=== PATIENT | male | born 1965 | race Caucasian/White ===

== ENCOUNTER 2018-07-08 07:40 | Day surgery (SDC) | payer OTHER ==
[~2018-07-08 07:40] MED LIST: LIDOCAINE 2% (SDV) 5 ML INJ; ROCURONIUM 50 MG INJ
[2018-07-08 08:29] LABS: ADD MAN DIFF? NO
[2018-07-08] MEDS ORDERED: SOD CHLORIDE 0.9% 1,000 ML IV (08:30)
[2018-07-08] MEDS ORDERED: CEFAZOLIN 2 GM/50 ML (PMX) 50 ML IVPB (08:30)
[2018-07-08 08:33] LABS: BASOPHILS % 0.5 % (0.0-2.0); EOSINOPHILS # 0.1 10^3/ul (0.0-0.5); EOSINOPHILS % 1.8 % (0.0-7.0); HEMATOCRIT 41.9 % (42.0-52.0); HEMOGLOBIN 14.3 g/dl (14.0-18.0); LYMPHOCYTES # 1.6 10^3/ul (0.8-2.9); LYMPHOCYTES % 29.2 % (15.0-51.0); MEAN CORPUSCULAR HEMOGLOBIN 30.2 pg (29.0-33.0); MEAN CORPUSCULAR HGB CONC 34.1 g/dl (32.0-37.0); MEAN CORPUSCULAR VOLUME 88.4 fl (82.0-101.0); MEAN PLATELET VOLUME 10.3 fl (7.4-10.4); MONOCYTE # 0.3 10^3/ul (0.3-0.9); NEUTROPHIL # 3.5 10^3/ul (1.6-7.5); NEUTROPHILS % 62.3 % (39.0-77.0); PLATELET COUNT 220 10^3/UL (140-415); RED BLOOD COUNT 4.74 10^6/ul (4.70-6.10); RED CELL DISTRIBUTION WIDTH 13.1 % (11.5-14.5)
[2018-07-08 08:33] LABS: WHITE BLOOD COUNT 5.6 10^3/ul (4.8-10.8)
[2018-07-08 08:51] LABS: INR 0.91; PROTIME 12.3 Sec (11.9-14.9)
[2018-07-08 08:52] LABS: ALANINE AMINOTRANSFERASE 57 IU/L (13-69); ALBUMIN 4.4 g/dl (3.3-4.9); ALBUMIN/GLOBULIN RATIO 1.12; ALKALINE PHOSPHATASE 88 IU/L (42-121); ANION GAP 12 (8-16); ASPARTATE AMINO TRANSFERASE 36 IU/L (15-46); BILIRUBIN,INDIRECT 0.4 mg/dl (0-1.1); BILIRUBIN,TOTAL 0.4 mg/dl (0.2-1.3); BLOOD UREA NITROGEN 12 mg/dl (7-20); CALCIUM 9.5 mg/dl (8.4-10.2); CARBON DIOXIDE 27 mmol/L (21-31); CHLORIDE 108 mmol/L (97-110); CREATININE 0.86 mg/dl (0.61-1.24); GLUCOSE 102 mg/dl (70-220); PARTIAL THROMBOPLASTIN TIME 27.5 Sec (25.0-35.0); POTASSIUM 3.9 mmol/L (3.5-5.1); SODIUM 143 mmol/L (135-144); TOTAL PROTEIN 8.3 g/dl (6.1-8.1)
[2018-07-08] MEDS ORDERED: HYDROmorphONE 1 MG/5 ML IV SYRINGE IV ×2 (09:00)
[2018-07-08] MEDS ORDERED: MEPERIDINE 25 MG INJ IV (09:00)
[2018-07-08] MEDS ORDERED: OXYCODONE/ACETAMINOPHEN (5/325) TAB PO ×2 (09:00)
[2018-07-08] MEDS ORDERED: ONDANSETRON 4 MG INJ IV (09:00)
[2018-07-08] MEDS ORDERED: ALBUTEROL 0.083% (NEB) 2.5 MG/3 ML AMP HHN (09:00)
[2018-07-08] MEDS ORDERED: DIPHENHYDRAMINE 50 MG INJ IV (09:00)
[2018-07-08] MEDS ORDERED: LABETALOL HCL 20MG INJ IV (09:00)
[2018-07-08] MEDS ORDERED: morphine (1 MG/ML) 10ML SYRINGE IV ×2 (09:00)
[2018-07-08] MEDS ORDERED: FENTAnyl 50 MCG/ML VIAL IV ×2 (09:00)
[2018-07-08] MEDS ORDERED: ACETAMINOPHEN 1000MG/100ML IV 100 ML (11:21)
[2018-07-08] MEDS ORDERED: MIDAZOLAM 1 MG/ML 2 ML INJ (11:21)
[2018-07-08] MEDS ORDERED: FENTAnyl 50 MCG/ML VIAL ×2 (11:21→14:07)
[2018-07-08] MEDS ORDERED: PROPOFOL 40 ML (11:21)
[2018-07-08] MEDS ORDERED: DEXAMETHASONE 4 MG/ML 1 ML INJ (11:22)
[2018-07-08] MEDS ORDERED: ONDANSETRON 4 MG INJ (11:22)
[2018-07-08] MEDS ORDERED: FAMOTIDINE 20 MG INJ (11:23)
[2018-07-08] MEDS ORDERED: CEFAZOLIN 1 GM INJ (11:25)
[2018-07-08] MEDS ORDERED: KETOROLAC 30 MG INJ (11:58)
[2018-07-08] MEDS ORDERED: KETAMINE (100 MG/ML) 5 ML VIAL (11:59)
[2018-07-08] MEDS: BUPIVACAINE 0.5% (SDV) 30 ML INJ (12:13)
[2018-07-08] MEDS: LIDOCAINE 1% (MPF) 30 ML INJ (12:13)
[2018-07-08] MEDS: POLYMYXIN/BACITRACIN 1L IRRIG (12:13)
[2018-07-08] MEDS ORDERED: ROCURONIUM 50 MG INJ (12:17)
[2018-07-08] MEDS ORDERED: SUGAMMADEX SODIUM 200 MG/2 ML VIAL IV (12:18)
[2018-07-08] MEDS ORDERED: MAGNESIUM SULFATE 1 GM/D5W 100 ML (12:23)
[2018-07-08] MEDS ORDERED: GLYCOPYRROLATE 1 MG INJ (12:26)
[2018-07-08] MEDS ORDERED: PROPOFOL 20 ML (12:55)
[2018-07-08] MEDS ORDERED: HYDROCODONE/APAP (5/325) TAB PO ×2 (14:30)
== END 2018-07-08 17:22 | disposition home or self-care (01) ==
LOC: SDS 07:40
DX: K40.30 Unilateral inguinal hernia, with obstruction, without gangrene, not specified as recurrent (principal)
CPT/HCPCS: 49505; 71045; 80053; 85025; 85610; 85730; 88302; 93005